=== PATIENT | male | born 2000 | race Caucasian/White ===

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

== ENCOUNTER 2021-03-12 07:04 | Emergency (ER) | payer BC ==
[2021-03-12] MEDS ORDERED: Morphine 4 MG/ML Syringe IVPUSH ONE (07:27)
[2021-03-12] MEDS ORDERED: Lactated Ringers 1,000 ML IV ONE (07:27)
[2021-03-12] MEDS ORDERED: Ondansetron 4 MG/2 ML SDV IVPUSH ONE ×2 (07:27→08:05)
[2021-03-12] MEDS ORDERED: Ondansetron 4 MG/2 ML SDV ONE (07:59)
[2021-03-12] MEDS ORDERED: HYDROmorphone 1 MG/ML Syringe IVPUSH ONE ×2 (08:05→11:01)
[2021-03-12 08:13] LABS: BLOOD UREA NITROGEN,BUN 14 mg/dL (7.0-18.0); CARBON DIOXIDE,CO2 22.4 mmol/L (21.0-32.0); CHLORIDE,CL 107 mmol/L (98-107); GLUCOSE RANDOM 131 mg/dL (74-106); POTASSIUM,K 3.8 mmol/L (3.5-5.1); SODIUM,NA 143 mmol/L (136-148)
--- NOTE | 2021-03-12 09:18 | CT ---
Indication: Left-sided flank pain evaluate for nephrolithiasis Technique: Volumetric multidetector CT images of the abdomen and pelvis were without the administration of intravenous contrast. Comparison: CT abdomen and pelvis December 09, 2019 Findings: The lung bases are clear. The liver is normal in attenuation without intrahepatic biliary ductal dilatation. The gallbladder is unremarkable without evidence of radiopaque calculus. There is no significant common biliary ductal dilatation or abrupt cut off. The spleen is normal in attenuation and size. The stomach and duodenum are grossly unremarkable. The pancreas is normal in attenuation without significant atrophy. The adrenal glands are unremarkable. There is left-sided hydronephrosis and hydroureter with demonstration of a 4.8 millimeter calculus just at the left ureteropelvic junction. There is a mild amount of stool seen throughout the colon. There is mild distal colonic diverticulosis. The appendix is unremarkable. There is no significant mesenteric, retroperitoneal, or pelvic sidewall lymph nodes. The aorta is nonaneurysmal. There is no significant atherosclerotic disease appreciated. The solid pelvic viscera are grossly unremarkable. There is no free fluid or free air. There is minimal diastasis of the rectus musculature. The lumbar vertebral body heights are grossly maintained with early degenerative disc disease at the L4-L5 level. Impression: 4.8 millimeter calculus seen within the left ureteropelvic junction with associated hydronephrosis. Please note that all CT scans at this facility use dose modulation, iterative reconstruction, and/or weight-based dosing when appropriate to reduce radiation dose to as low as reasonably achievable. Dictated by Narciso Hart MD @ 03/12/2021 9:17:[address] Narciso Hart @ Mar 12 2021 9:17AM
[2021-03-12] MEDS ORDERED: Tamsulosin 0.4 MG Cap.ER PO ONE (09:29)
[2021-03-12] MEDS ORDERED: Lactated Ringers 1,000 ML IV SCH (10:15)
--- NOTE | 2021-03-12 12:20 | EDM.PDOC ---
ED HPI GENERAL MEDICAL PROBLEM - General Chief Complaint: Flank Pain Stated Complaint: PAIN IN LOWER BACK- LEFT SIDE Time Seen by Provider: 03/12/21 07:26 - History of Present Illness INITIAL COMMENTS - FREE TEXT/NARRATIVE: CHIEF COMPLAINT(S): "I am having a kidney stone." HISTORY OF PRESENT ILLNESS: This is a 20-year-old man and with a past medical history of nephrolithiasis who comes to the emergency department with a chief complaint of "I am having a kidney stone." The patient states that approximately 4 hours prior to arrival he started to experience lower back and left-sided flank pain which he describes as a 10 out of 10, constant and sharp. He denies any radiation of the pain and is located directly on his left flank. He states that he has not had any nausea or vomiting. He states that he has had some associated hematuria. He denies any dysuria, penile discharge or testicular pain. There is no relieving factors he has not yet tried any pain medication. There are no aggravating factors as he woke up and started to feel this pain. He denies any fevers, chills or any other symptoms. REVIEW OF SYSTEMS: Constitutional: Denies fever, chills. Eyes: Denies eye pain Ears, Nose, Mouth, & Throat: Denies earache Cardiovascular: Denies chest pain Respiratory: Denies shortness of breath Gastrointestinal: Denies Nausea, vomiting, diarrhea, hematochezia. Genitourinary: Positive for left flank pain and hematuria. Denies dysuria, penile discharge, testicular pain skin:Denies a rash MSK: Denies joint pain Neurological: Denies blurred vision, numbness, tingling, weakness Psychiatric: Denies depression PAST MEDICAL HISTORY: As per history of present illness and as reviewed below otherwise noncontributory. SURGICAL HISTORY: As per history of present illness and as reviewed below otherwise noncontributory. SOCIAL HISTORY: As per history of present illness and as reviewed below otherwise noncontributory. FAMILY HISTORY: As per history of present illness and as reviewed below otherwise noncontributory. EXAMINATION OF ORGAN SYSTEMS/BODY AREAS: Constitutional: Blood pressure was 154/111, heart rate 97, respiratory rate 18 with an oxygen saturation of 98% on room air. Temperature 36.3 General: Young man who appears to be in a moderate amount of pain Psychiatric: Appropriate mood and affect. Eyes: No scleral icterus or conjunctival erythema ENMT: Moist mucous membranes. No pharyngeal erythema Cardiovascular: Regular, rate, and rhythm. No gallops, murmurs, or rubs. Bilateral upper extremity pulses symmetric and intact. No peripheral edema. No JVD. Respiratory: Lungs clear to auscultation bilaterally. No wheezes, rales, or rhonchi. Gastrointestinal: Soft, non-tender, non-distended. Normoactive bowel sounds no rebound or guarding. Genitourinary: No suprapubic tenderness no CVA tenderness. No left flank tenderness. Musculoskeletal: Normal range of motion. Skin: No lesions or abrasions. Neurological: Alert, GCS 15 MEDICAL DECISION MAKING AND COURSE IN THE ED WITH INTERPRETATION/REVIEW OF DIAGNOSTIC STUDIES: This is a 20-year-old man with a past medical history of prior nephrolithiasis who comes to the emergency department with sudden onset moderate to severe left flank pain associated with hematuria. At this time we will obtain a CBC, CMP, and urinalysis. The patient is experiencing some nausea currently therefore we will provide him with 4 mg of IV Zofran and 4 mg of IV morphine for pain relief. We will provide him with 1 L of lactated Ringer's bolus. At this time given his history of kidney stones differential does include nephrolithiasis, obstructive nephrolithiasis, diverticulitis. Will obtain a CT abdomen pelvis without contrast for further evaluation. Laboratory: CBC is unremarkable. CMP reveals hyperglycemia at 131 otherwise unremarkable. Urinalysis was a clean catch and was negative for leukocyte esterase, positive for nitrites, and large for blood. Dirty catch with 3+ bacteria interpretation: Hematuria Prior to going to CT the patient had increased pain therefore I provided the patient with 1 mg of Dilaudid IV and additional 4 mg of IV Zofran. The radiological images were viewed by myself along with reading the report from the radiologist. CT abdomen pelvis without contrast reveals a 4.8 mm calculus seen within the left uteropelvic junction with associated hydronephrosis. Prior to imaging results and reevaluation after CT the patient reported improvement in his pain down to 4/10. He no longer had any nausea. I did discuss the results with the patient. I discussed that I like to speak with the urologist given the location of the stone, the size of the stone and the possible urinary tract infection. He was amenable to this plan. I contacted [facility] in [place] and spoke with Dr. Sebastian who recommended outpatient follow-up and to contact his office. He recommended Flomax and to strain his urine. I did discuss this with the patient. I discussed that given no white count, no fever I do believe the urinalysis is a dirty catch and unlikely to be infected. I did discuss however that if he had worsening pain, fever of 101.5 or greater or is not feeling any better he is welcome to return to the emergency department. He was amenable to discharge at this time and had no further questions DISPOSITION: The patient was discharged home in stable condition. The patient will follow up with urology in 1 to 2 days CONDITION: Fair PROCEDURES: None FINAL IMPRESSION(S)/DIAGNOSES: 1. Acute left flank pain secondary to obstructive nephrolithiasis 2. Acute hematuria likely secondary to #1 Denny Tyson M.D. left flank Pain Score (Numeric/FACES): 8 - Related Data Allergies Allergy/AdvReac Type Severity Reaction Status Date / Time No Known Allergies Allergy Verified 03/12/21 07:23 Home Meds: Home Meds Hydrocodone/Acetaminophen [Hydrocodone-Acetamin 5-325 mg] 1 each PO Q6H PRN #14 tab 03/12/21 [Rx] Tamsulosin [Tamsulosin 24 Hr] 0.4 mg PO DAILY #14 cap.er 03/12/21 [Rx] Past Medical History - Past Health History Medical/Surgical History: Denies Medical/Surgical History HEENT History: Reports: None Cardiovascular History: Reports: None Respiratory History: Reports: None Gastrointestinal History: Reports: None Genitourinary History: Reports: Renal Calculus Musculoskeletal History: Reports: None Neurological History: Reports: None Psychiatric History: Reports: None Endocrine/Metabolic History: Reports: None 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 Hematologic History: Reports: None Immunologic History: Reports: None Oncologic (Cancer) History: Reports: None Dermatologic History: Reports: None - Infectious Disease History Infectious Disease History: Reports: None - Past Surgical History Head Surgeries/Procedures: Reports: None Social & Family History - Family History Family Medical History: No Pertinent Family History - Tobacco Use Tobacco Use Status *Q: Never Tobacco User Second Hand Smoke Exposure: No - Caffeine Use Caffeine Use: Reports: None - Recreational Drug Use Recreational Drug Use: No ED ROS GENERAL - Review of Systems Review Of Systems: See Below ED EXAM, GENERAL - Physical Exam Exam: See Below Course - Vital Signs Last Recorded V/S: Last Vital Signs Temp 36.7 C 03/12/21 12:12 Pulse 100 03/12/21 12:32 Resp 17 03/12/21 12:32 BP 143/92 H 03/12/21 12:32 Pulse Ox 95 03/12/21 12:32 - Orders/Labs/Meds Labs: Laboratory Tests 03/12/21 03/12/21 03/12/21 Range/Units 07:37 08:01 10:10 WBC 6.61 (4.0-11.0) K/uL RBC 5.15 (4.50-5.90) M/uL Hgb 14.8 (13.0-17.0) g/dL Hct 43.5 (38.0-50.0) % MCV 84.5 (80.0-98.0) fL MCH 28.7 (27.0-32.0) pg MCHC 34.0 (31.0-37.0) g/dL RDW Std Deviation 41.3 (28.0-62.0) fl RDW Coeff of Jean 14 (11.0-15.0) % Plt Count 188 (150-400) K/uL MPV 11.30 (7.40-12.00) fL Neut % (Auto) 41.8 L (48.0-80.0) % Lymph % (Auto) 45.8 H (16.0-40.0) % [place] % (Auto) 10.1 (0.0-15.0) % Eos % (Auto) 1.7 (0.0-7.0) % Baso % (Auto) 0.6 (0.0-1.5) % Neut # (Auto) 2.8 (1.4-5.7) K/uL Lymph # (Auto) 3.0 H (0.6-2.4) K/uL [place] # (Auto) 0.7 (0.0-0.8) K/uL Eos # (Auto) 0.1 (0.0-0.7) K/uL Baso # (Auto) 0.0 (0.0-0.1) K/uL Nucleated RBC % 0.0 /100WBC Nucleated RBCs # 0 K/uL Sodium 143 (136-148) mmol/L Potassium 3.8 (3.5-5.1) mmol/L Chloride 107 (98-107) mmol/L Carbon Dioxide 22.4 (21.0-32.0) mmol/L BUN 14 (7.0-18.0) mg/dL Creatinine 1.3 (0.8-1.3) mg/dL Est Cr Clr Drug Dosing 102.44 mL/min Estimated GFR (MDRD) > 60.0 ml/min Glucose 131 H (74-106) mg/dL Calcium 8.8 (8.5-10.1) mg/dL Total Bilirubin 0.3 (0.2-1.0) mg/dL AST 16 (15-37) IU/L ALT 37 (14-63) IU/L Alkaline Phosphatase 85 (46-116) U/L Total Protein 7.7 (6.4-8.2) g/dL Albumin 4.3 (3.4-5.0) g/dL Globulin 3.4 (2.6-4.0) g/dL Albumin/Globulin Ratio 1.3 (0.9-1.6) Urine Color BROWN Urine Appearance CLOUDY Urine pH 6.5 (5.0-8.0) Ur Specific [place] >= 1.030 (1.001-1.035) Urine Protein >=300 H (NEGATIVE) mg/dL Urine Glucose (UA) NEGATIVE (NEGATIVE) mg/dL Urine Ketones TRACE H (NEGATIVE) mg/dL Urine Occult Blood LARGE H (NEGATIVE) Urine Nitrite POSITIVE H (NEGATIVE) Urine Bilirubin MODERATE H (NEGATIVE) Urine Ictotest NEGATIVE Urine Urobilinogen 1.0 (<2.0) EU/dL Ur Leukocyte Esterase NEGATIVE (NEGATIVE) Urine RBC TOO NUMEROUS TO CT (0-2/HPF) Urine WBC 0-2 (0-5/HPF) Ur Epithelial Cells OCCASIONAL (NONE-FEW) Urine Bacteria 3+ H (NEGATIVE) Meds: Medications Discontinued Medications Generic Name Dose Route Start Last Admin Trade Name Freq PRN Reason Stop Dose Admin Hydromorphone HCl 1 mg 03/12/21 08:05 03/12/21 08:22 Hydromorphone 1 Mg/Ml Syringe IVPUSH 03/12/21 08:06 1 mg ONETIME ONE Administration Hydromorphone HCl 1 mg 07/12/21 11:01 03/12/21 11:16 Hydromorphone 1 Mg/Ml Syringe IVPUSH 03/12/21 11:02 1 mg ONETIME ONE Administration Lactated Ringer's 1,000 mls @ 999 mls/hr 03/12/21 07:27 03/12/21 07:34 Ringers, Lactated IV 03/12/21 08:27 999 mls/hr .BOLUS ONE Administration Lactated Ringer's 1,000 mls @ 999 mls/hr 03/12/21 10:15 03/12/21 10:13 Ringers, Lactated IV 999 mls/hr ASDIRECTED ALFONSO Administration Morphine Sulfate 4 mg 03/12/21 07:27 03/12/21 07:34 Morphine 4 Mg/Ml Syringe IVPUSH 03/12/21 07:28 4 mg ONETIME ONE Administration Ondansetron HCl 4 mg 03/12/21 07:27 03/12/21 07:34 Ondansetron 4 Mg/2 Ml Sdv IVPUSH 03/12/21 07:28 4 mg ONETIME ONE Administration Ondansetron HCl Confirm 03/12/21 07:59 03/12/21 08:06 Ondansetron 4 Mg/2 Ml Sdv Administered 03/12/21 08:00 Not Given Dose 4 mg .ROUTE .STK-MED ONE Ondansetron HCl 4 mg 03/12/21 08:05 03/12/21 09:01 Ondansetron 4 Mg/2 Ml Sdv IVPUSH 03/12/21 08:06 4 mg ONETIME ONE Administration Tamsulosin HCl 0.4 mg 03/12/21 09:29 03/12/21 09:33 Tamsulosin 0.4 Mg Cap.Er PO 03/12/21 09:30 0.4 mg ONETIME ONE Administration Departure - Departure Time of Disposition: 12:18 Disposition: Home, Self-Care 01 Condition: Fair Clinical Impression: Nephrolithiasis - Discharge Information *PRESCRIPTION DRUG MONITORING PROGRAM REVIEWED*: No *COPY OF PRESCRIPTION DRUG MONITORING REPORT IN PATIENT MARQUIS: No Prescriptions: Tamsulosin [Tamsulosin 24 Hr] 0.4 mg PO DAILY #14 cap.er Hydrocodone/Acetaminophen [Hydrocodone-Acetamin 5-325 mg] 1 each PO Q6H PRN #14 tab PRN Reason: Pain (Moderate 4-6) Instructions: Kidney Stones, [id number], Pain Medicine Instructions, [id number] Referrals: PCP,None [Primary Care Provider] - Forms: ED Department Discharge Additional Instructions: You were evaluated today on an emergent basis. At this time you do have a kidney stone on the left side. Your urine did show some nitrites but was a dirty catch. Therefore at this time antibiotics are not indicated. If you have a fever greater than 101.5 I want you to return to the emergency department. In the interim I would like you to use Flomax daily and to strain your urine to evaluate for the stone passing. For pain control I want you to take 1 tablet of Tylenol 500 mg every 6 hours and then 1 tablet of [place] every 6 hours as needed for severe pain. Please keep hydrated with fluids. If you have any fever, worsening symptoms I would like you to return to the emergency department. Please follow-up with urology within 2 to 4 days. Please contact them today for a follow-up appointment. [facility] [place] DOMINIC [phone] *When you call for an appointment say "I was seen in the ER in [place] and I have a kidney stone and need follow up this week." The patient is informed of any results of their evaluation and diagnostic workup and all questions are answered. They are given discharge instructions and return precautions. The patient is stable for discharge. The patient states they understand and agree with the plan and that they will return if their symptoms get worse or if they have any new concerns. The following information is given to patients seen in the emergency department who are being discharged to home. This information is to outline your options for follow-up care. We provide all patients seen in our emergency department with a follow-up referral. The need for follow-up, as well as the timing and circumstances, are variable depending upon the specifics of your emergency department visit. If you don't have a primary care physician on staff, we will provide you with a referral. We always advise you to contact your personal physician following an emergency department visit to inform them of the circumstance of the visit and for follow-up with them and/or the need for any referrals to a consulting specialist. The emergency department will also refer you to a specialist when appropriate. This referral assures that you have the opportunity for follow-up care with a specialist. All of these measure are taken in an effort to provide you with optimal care, which includes your follow-up. Under all circumstances we always encourage you to contact your private physician who remains a resource for coordinating your care. When calling for f ollow-up care, please make the office aware that this follow-up is from your recent emergency room visit. If for any reason you are refused follow-up, please contact the [facility] Emergency Department at and asked to speak to the emergency department charge nurse. Sepsis Event Note (ED) - Evaluation Sepsis Screening Result: No Definite Risk
[2021-03-12 12:33] VITALS: BP 143/92; PULSE 100
== END 2021-03-12 12:33 | disposition home or self-care (01) ==
LOC: MW.ED 07:04
DX: N13.2 Hydronephrosis with renal and ureteral calculous obstruction (principal); R31.9 Hematuria, unspecified
CPT/HCPCS: 36415; 74176; 80053; 81001; 85025; 96374; 96375; 96376; 99284; A9270; J1170; J2270; J2405; J7120

== ENCOUNTER 2021-03-14 07:52 | Emergency (ER) | payer BC ==
[2021-03-14] MEDS ORDERED: Ketorolac 15 MG/ML SDV IVPUSH ONE (08:11)
[2021-03-14] MEDS ORDERED: Sodium Chloride 0.9% 2.5 ML Syringe FLUSH PRN (08:11)
[2021-03-14] MEDS ORDERED: Sodium Chloride 0.9% 10 ML Syringe FLUSH PRN (08:11)
[2021-03-14] MEDS ORDERED: Ondansetron 4 MG/2 ML SDV IVPUSH ONE (08:11)
[2021-03-14] MEDS ORDERED: Sodium Chloride 0.9% 1,000 ML IV ONE (08:12)
--- NOTE | 2021-03-14 08:21 | EDM.PDOC ---
ED HPI GENERAL MEDICAL PROBLEM - General Chief Complaint: Flank Pain Stated Complaint: KIDNEY STONE Time Seen by Provider: 03/14/21 08:11 - History of Present Illness INITIAL COMMENTS - FREE TEXT/NARRATIVE: History of present illness: [] The patient complains of severe flank pain. He also has nausea and vomiting. He is not making much urine. He was seen approximately 8 AM on the 12th of this month and diagnosed with a left ureteropelvic junction kidney stone of 4.[address] Johnson yesterday and Sandeep and Dr. Johnson said that if he had not passed it by 08 April that they would do some sort of intervention. 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 He has severe colicky pain that is interfering with his ability to perform normal daily functions. Review of systems: As per history of present illness and below otherwise all systems reviewed and negative. Past medical history: As per history of present illness and as reviewed below otherwise noncontributory. Surgical history: As per history of present illness and as reviewed below otherwise noncontributory. Social history: No reported history of drug or alcohol abuse. Family history: As per history of present illness and as reviewed below otherwise noncontributory. Physical exam: Constitutional - well developed, well-nourished and in moderate acute distress HEENT - normocephalic, no evidence of trauma - external nose and mouth normal - no mass in neck and no JVD - mucosae moist EYES - full EOM, PERRL, no icterus - no evidence of inflammation, injection, or drainage Respiratory - no respiratory distress, equal bilateral expansion, lungs clear to auscultation and no abnormal lung sounds Cardiovascular - Regular Rhythm with S1 and S2 appreciated and no murmur, gallop or rub. GI - abdomen soft without distension or organomegaly - normal bowel sounds - no guard or rebound Musculoskeletal no gross deformity of long bones or joints - no tenderness, swelling or edema Neurologic - Alert and oriented times four - CN II-XII grossly intact - motor sensory and coordination symmetrically normal Psychiatric - appropriate mood and affect with normal thought content Hematologic - No petechiae or purpura - mucosa appropriate color and sclera not pale - normal nail bed color and refill Integument - no rash or evidence of trauma - normal turgor Diagnostics: [] Therapeutics: [] Impression: [] Plan: [] Definitive disposition and diagnosis as appropriate pending reevaluation and review of above. left flank Pain Score (Numeric/FACES): 8 - Related Data Allergies Allergy/AdvReac Type Severity Reaction Status Date / Time No Known Allergies Allergy Verified 03/14/21 08:27 Home Meds: Home Meds Hydrocodone/Acetaminophen [Hydrocodone-Acetamin 5-325 mg] 1 each PO Q6H PRN #14 tab 03/12/21 [Rx] Tamsulosin [Tamsulosin 24 Hr] 0.4 mg PO DAILY #14 cap.er 03/12/21 [Rx] Acetaminophen/oxyCODONE [Percocet 325-5 MG] 1 - 2 each PO Q4H PRN #20 tab 03/14/21 [Rx] Ondansetron [Zofran ODT] 4 mg PO Q6H PRN #10 tab.dis 03/14/21 [Rx] Past Medical History - Past Health History Medical/Surgical History: Denies Medical/Surgical History HEENT History: Reports: None Cardiovascular History: Reports: None Respiratory History: Reports: None Gastrointestinal History: Reports: None Genitourinary History: Reports: Renal Calculus Musculoskeletal History: Reports: None Neurological History: Reports: None Psychiatric History: Reports: None Endocrine/Metabolic History: Reports: None Insulin Pump Model and Stopboard Assembler: None Hematologic History: Reports: None Immunologic History: Reports: None Oncologic (Cancer) History: Reports: None Dermatologic History: Reports: None - Infectious Disease History Infectious Disease History: Reports: None - Past Surgical History Head Surgeries/Procedures: Reports: None Social & Family History - Family History Family Medical History: No Pertinent Family History - Caffeine Use Caffeine Use: Reports: None ED ROS GENERAL - Review of Systems Review Of Systems: Comprehensive ROS is negative, except as noted in HPI. ED EXAM, GENERAL - Physical Exam Exam: See Below Free Text/Narrative:: My physical exam is in the HPI Course - Vital Signs Text/Narrative:: 04 27 nausea improved and pain not 10:19 AM patient's pain was relieved and starting to come back. He is not vomiting. Labs reviewed. Patient will be instructed to call urology today and follow-up as soon as possible. He will be given 2 days off and 2 more days of narcotics and nausea medicine. Last Recorded V/S: Last Vital Signs Temp 36.7 C 03/14/21 08:36 Pulse 94 03/14/21 10:15 Resp 18 03/14/21 10:15 BP 131/74 03/14/21 10:15 Pulse Ox 99 03/14/21 10:15 - Orders/Labs/Meds Orders: Active Orders 24 hr Category Date Time Status Sodium Chloride 0.9% [Saline Flush] Med 03/14/21 08:11 Active 10 ml FLUSH ASDIRECTED PRN Sodium Chloride 0.9% [Saline Flush] Med 03/14/21 08:11 Active 2.5 ml FLUSH ASDIRECTED PRN Saline Lock Insert [OM.PC] Stat Oth 03/14/21 08:11 Ordered Medication Orders Sodium Chloride (Sodium Chloride 0.9% 10 Ml Syringe) 10 ml FLUSH ASDIRECTED PRN PRN Reason: Keep Vein Open Last Admin: 03/14/21 08:20 Dose: 10 ml Documented by: JAMIE Sodium Chloride (Sodium Chloride 0.9% 2.5 Ml Syringe) 2.5 ml FLUSH ASDIRECTED PRN PRN Reason: Keep Vein Open Last Admin: 03/14/21 08:20 Dose: 2.5 ml Documented by: JAMIE Labs: Laboratory Tests 03/14/21 03/14/21 03/14/21 Range/Units 08:06 08:06 09:20 WBC 6.00 (4.0-11.0) K/uL RBC 5.44 (4.50-5.90) M/uL Hgb 15.6 (13.0-17.0) g/dL Hct 46.1 (38.0-50.0) % MCV 84.7 (80.0-98.0) fL MCH 28.7 (27.0-32.0) pg MCHC 33.8 (31.0-37.0) g/dL RDW Std Deviation 42.3 (28.0-62.0) fl RDW Coeff of Jean 14 (11.0-15.0) % Plt Count 179 (150-400) K/uL MPV 11.60 (7.40-12.00) fL Neut % (Auto) 45.1 L (48.0-80.0) % Lymph % (Auto) 39.7 (16.0-40.0) % [place] % (Auto) 13.7 (0.0-15.0) % Eos % (Auto) 1.2 (0.0-7.0) % Baso % (Auto) 0.3 (0.0-1.5) % Neut # (Auto) 2.7 (1.4-5.7) K/uL Lymph # (Auto) 2.4 (0.6-2.4) K/uL [place] # (Auto) 0.8 (0.0-0.8) K/uL Eos # (Auto) 0.1 (0.0-0.7) K/uL Baso # (Auto) 0.0 (0.0-0.1) K/uL Nucleated RBC % 0.0 /100WBC Nucleated RBCs # 0 K/uL Sodium 142 (136-148) mmol/L Potassium 3.9 (3.5-5.1) mmol/L Chloride 105 (98-107) mmol/L Carbon Dioxide 25.4 (21.0-32.0) mmol/L BUN 12 (7.0-18.0) mg/dL Creatinine 1.3 (0.8-1.3) mg/dL Est Cr Clr Drug Dosing 102.44 mL/min Estimated GFR (MDRD) > 60.0 ml/min Glucose 109 H (74-106) mg/dL Calcium 8.9 (8.5-10.1) mg/dL Urine Color YELLOW Urine Appearance CLEAR Urine pH 6.0 (5.0-8.0) Ur Specific [place] 1.025 (1.001-1.035) Urine Protein NEGATIVE (NEGATIVE) mg/dL Urine Glucose (UA) NEGATIVE (NEGATIVE) mg/dL Urine Ketones NEGATIVE (NEGATIVE) mg/dL Urine Occult Blood LARGE H (NEGATIVE) Urine Nitrite NEGATIVE (NEGATIVE) Urine Bilirubin NEGATIVE (NEGATIVE) Urine Urobilinogen 0.2 (<2.0) EU/dL Ur Leukocyte Esterase NEGATIVE (NEGATIVE) Urine RBC 25-32 (0-2/HPF) Urine WBC 1-2 (0-5/HPF) Ur Epithelial Cells NOT SEEN (NONE-FEW) Amorphous Sediment FEW (NEGATIVE) Urine Bacteria FEW (NEGATIVE) Urine Mucus FEW (NONE-MOD) Meds: Medications Generic Name Dose Route Start Last Admin Trade Name Freq PRN Reason Stop Dose Admin Sodium Chloride 10 ml 03/14/21 08:11 03/14/21 08:20 Sodium Chloride 0.9% 10 Ml Syringe FLUSH 10 ml ASDIRECTED PRN Administration Keep Vein Open Sodium Chloride 2.5 ml 03/14/21 08:11 03/14/21 08:20 Sodium Chloride 0.9% 2.5 Ml Syringe FLUSH 2.5 ml ASDIRECTED PRN Administration Keep Vein Open Discontinued Medications Generic Name Dose Route Start Last Admin Trade Name Freq PRN Reason Stop Dose Admin Hydromorphone HCl 1 mg 03/14/21 08:26 03/14/21 08:30 Hydromorphone 1 Mg/Ml Syringe IVPUSH 03/14/21 08:27 1 mg ONETIME ONE Administration Sodium Chloride 1,000 mls @ 1,000 mls/hr 03/14/21 08:12 03/14/21 08:20 Normal Saline IV 03/14/21 09:11 1,000 mls/hr .Bolus ONE Administration Ketorolac Tromethamine 15 mg 03/14/21 08:11 03/14/21 08:20 Ketorolac 15 Mg/Ml Sdv IVPUSH 03/14/21 08:12 15 mg ONETIME ONE Administration Ondansetron HCl 4 mg 03/14/21 08:11 03/14/21 08:20 Ondansetron 4 Mg/2 Ml Sdv IVPUSH 03/14/21 08:12 4 mg ONETIME ONE Administration Departure - Departure Time of Disposition: 10:21 Disposition: Home, Self-Care 01 Condition: Good Clinical Impression: Ureteric colic - Discharge Information Prescriptions: Acetaminophen/oxyCODONE [Percocet 325-5 MG] 1 - 2 each PO Q4H PRN #20 tab PRN Reason: Pain (Severe 7-10) Ondansetron [Zofran ODT] 4 mg PO Q6H PRN #10 tab.dis PRN Reason: Nausea/Vomiting Instructions: Kidney Stones, [id number] Referrals: PCP,None [Primary Care Provider] - Cecily [place] DO [Ordering Only Provider] - Forms: ED Department Discharge Additional Instructions: You need to pass the stone. Call your urologist today just in case. Strain your urine. I have given you 2 days off in 2 days of narcotics plus nausea medicine. I think it is probably not likely that you have passed the stone so contact the urologist that you do not end up having to stay off work for 2 or 3 more weeks before she can see and break it up. [facility] - Primary Care [address] [place] [address] [facility] [address] [place] [address] The following information is given to patients seen in the emergency department who are being discharged to home. This information is to outline your options for follow-up care. We provide all patients seen in our emergency department with a follow-up referral. The need for follow-up, as well as the timing and circumstances, are variable depending upon the specifics of your emergency department visit. If you don't have a primary care physician on staff, we will provide you with a referral. We always advise you to contact your personal physician following an emergency department visit to inform them of the circumstance of the visit and for follow-up with them and/or the need for any referrals to a consulting specialist. The emergency department will also refer you to a specialist when appropriate. This referral assures that you have the opportunity for follow-up care with a specialist. All of these measure are taken in an effort to provide you with optimal care, which includes your follow-up. Under all circumstances we always encourage you to contact your private physician who remains a resource for coordinating your care. When calling for follow-up care, please make the office aware that this follow-up is from your recent emergency room visit. If for any reason you are refused follow-up, please contact the [facility] Emergency Department at and asked to speak to the emergency department charge nurse. Sepsis Event Note (ED) - Focused Exam Vital Signs: Vital Signs Temp Pulse Resp BP Pulse Ox 03/14/21 10:15 94 18 131/74 99 03/14/21 09:29 68 18 133/74 98 03/14/21 08:36 36.7 C 20 135/69 98 03/14/21 07:55 36.3 C 92 20 154/115 H 98 - My Orders Last 24 Hours: My Active Orders 03/14/21 08:11 Sodium Chloride 0.9% [Saline Flush] 10 ml FLUSH ASDIRECTED PRN Sodium Chloride 0.9% [Saline Flush] 2.5 ml FLUSH ASDIRECTED PRN Saline Lock Insert [OM.PC] Stat - Assessment/Plan Last 24 Hours: My Active Orders 03/14/21 08:11 Sodium Chloride 0.9% [Saline Flush] 10 ml FLUSH ASDIRECTED PRN Sodium Chloride 0.9% [Saline Flush] 2.5 ml FLUSH ASDIRECTED PRN Saline Lock Insert [OM.PC] Stat
[2021-03-14] MEDS ORDERED: HYDROmorphone 1 MG/ML Syringe IVPUSH ONE (08:26)
[2021-03-14 08:41] LABS: BLOOD UREA NITROGEN,BUN 12 mg/dL (7.0-18.0); CARBON DIOXIDE,CO2 25.4 mmol/L (21.0-32.0); CHLORIDE,CL 105 mmol/L (98-107); GLUCOSE RANDOM 109 mg/dL (74-106); POTASSIUM,K 3.9 mmol/L (3.5-5.1); SODIUM,NA 142 mmol/L (136-148)
--- NOTE | 2021-03-14 09:38 | CR ---
Indication: Renal calculus Technique: Supine view abdomen was obtained Comparison: CT abdomen and pelvis March 12, 2021 Findings: There is a non-obstructive, non-specific bowel gas pattern. There is a minimal amount of stool seen throughout the colon. There is likely persistent proximal location of previously seen obstructing calculus at the left ureteropelvic junction. There is no intraabdominal free air. The visualized osseus structures are grossly intact. Impression: Non-obstructive bowel gas pattern. Demonstration of persistent proximal location of previously seen left-sided calculus at the ureteropelvic junction. Dictated by Narciso Hart MD @ 03/14/2021 9:37:[address] Narciso Hart @ Mar 14 2021 9:37AM
[2021-03-14 10:46] VITALS: BP 138/72; PULSE 74
== END 2021-03-14 10:46 | disposition home or self-care (01) ==
LOC: MW.ED 07:52
DX: N20.2 Calculus of kidney with calculus of ureter (principal)
CPT/HCPCS: 36415; 74018; 80048; 81001; 85025; 96361; 96374; 96375; 99284; J1170; J1885; J2405; J7030